=== PATIENT | male | born 1960 | race Caucasian/White ===

== ENCOUNTER 2019-06-09 08:21 | Emergency (ER) | payer MEDICARE, MEDICAID ==
--- NOTE | 2019-06-09 08:33 | ED ---
Complex/Multi-Sys Presentation - HPI Summary HPI Summary: 58-year-old male presents to the emergency department today via EMS because "he did not go to his mental health appointment". Patient did not feel comfortable getting on the public bus although he wanted to attend his mental health appointment. When the patient refused to get on the bus police ordered him to come to the hospital for mental health evaluation via EMS. Today in the emergency department the patient has no complaints including physical pain. He denies suicidal, homicidal thoughts. He denies desire to hurt himself and he does not believe he will go home and hurt himself or commit suicide. He denies recreational drug use, tobacco use but endorses occasional alcohol use. He denies fever, chest pain, abdominal pain, pain with urination, shortness of breath, changes in vision, headache. - History Of Current Complaint Chief Complaint: EDPsychosocial Time Seen by Provider: 06/09/19 08:23 Hx Obtained From: Patient - Allergies/Home Medications Allergies/Adverse Reactions: Allergies Allergy/AdvReac Type Severity Reaction Status Date / Time No Known Allergies Allergy Verified 06/09/19 08:32 Home Medications: Home Medications Acetaminophen TAB* [Tylenol TAB*] 325 mg PO Q4H PRN 06/09/19 [History Confirmed 06/09/19] Al Hydrox/Mg Hydrox/Simet LIQ* [Maalox Plus*] 30 ml PO Q6H PRN 06/09/19 [ History Confirmed 06/09/19] Aspirin EC TAB* [Ecotrin EC Low Dose 81 MG*] 81 mg PO DAILY 06/09/19 [History Confirmed 06/09/19] CloZAPine TAB* 100 mg PO QAM 06/09/19 [History Confirmed 06/09/19] CloZAPine TAB* 200 mg PO BEDTIME 06/09/19 [History Confirmed 06/09/19] Empagliflozin/Metformin HCl [Synjardy Xr 12.5-1,000 mg Tab] 1 each PO BID [History Confirmed 06/09/19] Escitalopram * [Lexapro 10 mg (NF)] 10 mg PO BEDTIME 06/09/19 [History Confirmed 06/09/19] Famotidine TAB* [Pepcid 20 MG TAB*] 20 mg PO BID 06/09/19 [History Confirmed ] Ibuprofen TAB* [Motrin TAB* 600 MG] 600 mg PO Q6H PRN 06/09/19 [History Confirmed 06/09/19] Loperamide CAP* [Imodium CAP*] 2 mg PO Q4H PRN 06/09/19 [History Confirmed 06/09] Magnesium Hydroxide LIQ* [Milk of Magnesia LIQ*] 30 ml PO BEDTIME 06/09/19 [ History Confirmed 06/09/19] Multivitamins/Minerals TAB* [Thera M Plus TAB*] 1 tab PO DAILY 06/09/19 [ History Confirmed 06/09/19] Petrolatum 5 GM* [Vaseline*] 1 applic TOPICAL DAILY 06/09/19 [History Confirmed 06/09/19] Polyethylene Glycol 3350* [Miralax*] 17 gm PO DAILY 06/09/19 [History Confirmed 06/09/19] Ranitidine TAB (NF) [Zantac TAB (NF)] 150 mg PO BID 06/09/19 [History Confirmed 06/09/19] Rosuvastatin Calcium 40 mg PO DAILY 06/09/19 [History Confirmed 06/09/19] SitaGLIPtin (NF) [Januvia (NF)] 100 mg PO DAILY 06/09/19 [History Confirmed ] Triamcinolone 0.1% CREAM (NF) [Kenalog 0.1% Cream (NF)] 1 applic TOPICAL BID [History Confirmed 06/09/19] PMH/Surg Hx/FS Hx/Imm Hx Infectious Disease History: No Infectious Disease History: Denies: Traveled Outside the [place] in Last 30 Days - Social History Alcohol Use: Occasionally Substance Use Type: Reports: None Smoking Status (MU): Heavy Every Day Tobacco Smoker Review of Systems Constitutional: Negative Eyes: Negative ENT: Negative Cardiovascular: Negative Respiratory: Negative Gastrointestinal: Negative Genitourinary: Negative Positive: other Skin: Negative Neurological: Negative Psychological: Normal All Other Systems Reviewed And Are Negative: Yes Physical Exam Triage Information Reviewed: Yes Vital Signs On Initial Exam: Initial Vitals Temp Pulse Resp BP Pulse Ox 97.7 F 92 16 128/78 96 06/09/19 08:28 06/09/19 08:28 06/09/19 08:28 06/09/19 08:28 06/09/19 08:28 Vital Signs Reviewed: Yes Appearance: Positive: Well-Appearing, No Pain Distress, Well-Nourished Skin: Positive: Warm, Skin Color Reflects Adequate Perfusion Eyes: Positive: EOMI, CHANTALE ENT: Positive: Hearing grossly normal Respiratory/Lung Sounds: Positive: Clear to Auscultation, Breath Sounds Present Cardiovascular: Positive: RRR, S1, S2 Abdomen Description: Positive: Nontender, Soft Bowel Sounds: Positive: Present Musculoskeletal: Positive: Strength/ROM Intact Neurological: Positive: Sensory/Motor Intact, Alert, Oriented to Person Place, Time, Normal Gait, Speech Normal. Negative: Slurred Speech Psychiatric: Positive: Normal AVPU Assessment: Alert Procedures - Sedation Patient Received Moderate/Deep Sedation with Procedure: No Diagnostics - Vital Signs Vital Signs Temp Pulse Resp BP Pulse Ox 06/09/19 08:28 97.7 F 92 16 128/78 96 - Laboratory Lab Statement: Any lab studies that have been ordered have been reviewed, and results considered in the medical decision making process. Complex Multi-Symp Course/Dx Course Of Treatment: Patient was evaluated in the emergency department today for psychosocial visit. Patient seen and examined his vital signs are stable and he is afebrile. He had no suicidal or homicidal ideation and he endorsed no thoughts of hurting himself. His caregivers denied that he stated suicidal or homicidal thoughts/actions however they were adamant that he get a psychological evaluation before he goes home. Psychiatric services for consulted for disposition. Psychiatrist, Dr. Garcia, evaluated the patient and believed him to be fit to go home and required no psychiatric services at this time. Patient was discharged home and told to follow-up with his outpatient psychiatrist. He was told to return to the emergency department immediately if he developed any new or worsening symptoms. Patient agreed with this plan. - Diagnoses Differential Diagnoses/HQI/PQRI: Other - Suicidal ideation, acute psychosis. Provider Diagnoses: Anxiety - Physician Notifications Discussed Care Of Patient With: Tito Garcia - psychiatrist believed the patient had no acute psychological disorder requiring admission or hospital stay. He felt he was safe to go home. Discharge ED - Sign-Out/Discharge Documenting (check all that apply): Patient Departure - Discharge Plan Condition: Stable Disposition: HOME Referrals: [facility] [Outside] - 1 Week No Primary Care Phys,NOPCP [Primary Care Provider] - Additional Instructions: You were seen in the emergency department today and missed your appointment. Please follow-up with this physician for rescheduling your appointment. It is noted you do not have a primary care physician in the area so I have given you information on [facility] which you may follow up with for any medical needs. Please return to the emergency department immediately for Any New or Worsening Symptoms Including Suicidal Ideation or Homicidal Ideation. - Billing Disposition and Condition Condition: STABLE Disposition: Home
[2019-06-09 12:44] VITALS: BP 130/66
== END 2019-06-09 12:35 | disposition home or self-care (01) ==
LOC: ED 08:21
DX: F41.9 Anxiety disorder, unspecified (principal); F17.200 Nicotine dependence, unspecified, uncomplicated; Z79.82 Long term (current) use of aspirin; Z79.899 Other long term (current) drug therapy
CPT/HCPCS: 99284

== ENCOUNTER 2019-08-17 10:46 | Emergency (ER) | payer MEDICARE, MEDICAID ==
--- NOTE | 2019-08-17 10:59 | ED ---
Complex/Multi-Sys Presentation - HPI Summary HPI Summary: 59-year-old male presents to the emergency department today sent by his [facility] for mental health evaluation. Patient states he does not need to be here but the prison "made me come". Patient states he currently denies suicidal or homicidal ideation. Patient has no complaints at this time and has no physical pain, fever, shortness of breath, chest pain, abdominal pain, pain with urination, rash. Patient denies use of recreational drugs or alcohol. - History Of Current Complaint Time Seen by Provider: 08/17/19 10:51 Hx Obtained From: Patient - Allergies/Home Medications Allergies/Adverse Reactions: Allergies Allergy/AdvReac Type Severity Reaction Status Date / Time No Known Allergies Allergy Verified 08/17/19 10:59 PMH/Surg Hx/FS Hx/Imm Hx Psychiatric History: Denies: Hx Eating Disorder, Hx of Violent Episodes Against Others - Social History Alcohol Use: Occasionally Substance Use Type: Reports: None Smoking Status (MU): Heavy Every Day Tobacco Smoker Review of Systems Constitutional: Negative Eyes: Negative ENT: Negative Cardiovascular: Negative Respiratory: Negative Gastrointestinal: Negative Genitourinary: Negative Musculoskeletal: Negative Skin: Negative Neurological: Negative Psychological: Normal All Other Systems Reviewed And Are Negative: Yes Physical Exam Triage Information Reviewed: Yes Vital Signs Reviewed: Yes Appearance: Positive: Well-Appearing, No Pain Distress, Well-Nourished Skin: Positive: Warm, Skin Color Reflects Adequate Perfusion Eyes: Positive: EOMI, CHANTALE ENT: Positive: Hearing grossly normal Respiratory/Lung Sounds: Positive: Clear to Auscultation, Breath Sounds Present Cardiovascular: Positive: RRR, S1, S2 Abdomen Description: Positive: Nontender, Soft Bowel Sounds: Positive: Present Musculoskeletal: Positive: Strength/ROM Intact Neurological: Positive: Sensory/Motor Intact, Alert, Oriented to Person Place, Time, Normal Gait, Facial Symmetry, Speech Normal Psychiatric: Positive: Normal, Affect/Mood Appropriate AVPU Assessment: Alert Procedures - Sedation Patient Received Moderate/Deep Sedation with Procedure: No Complex Multi-Symp Course/Dx Course Of Treatment: Patient was evaluated in the emergency department today after being sent here by prison [employer] and former for mental health evaluation. Patient was seen and examined. Vital stable. Patient had no medical complaints nor any psychiatric complaints such as suicidal ideation, homicidal ideation, anxiety, depression. Patient expressed that he did not feel he needed any sort of evaluation and requested to go home. Patient was discharged with outpatient follow-up with his counselor. - Diagnoses Differential Diagnoses/HQI/PQRI: Other - Well visit Provider Diagnoses: Visit for well man health check Discharge ED - Sign-Out/Discharge Documenting (check all that apply): Patient Departure - Discharge Plan Condition: Stable Disposition: HOME Patient Education Materials: Depression (ED) Referrals: [facility] [Outside] - 3 Days No Primary Care Phys,NOPCP [Primary Care Provider] - Additional Instructions: You were seen in the emergency department today for mental health evaluation. You stated you did not feel suicidal or homicidal and did not require evaluation at this time. If you have mental health concerns please follow-up with your counselor or psychiatrist as soon as possible. Please return to the emergency department immediately if you develop any new or worsening symptoms such as suicidal ideation or homicidal ideation. - Billing Disposition and Condition Condition: STABLE Disposition: Home - Attestation Statements Provider Attestation: I was available for consultation for this patient. I did not evaluate the patient, or participate in any medical decision making or disposition decisions unless I am specifically named in the chart as having consulted on the patient. If I have consulted on the patient, please see my own ED note on the patient encounter. Link Samayoa MD
[2019-08-17 12:20] VITALS: BP 118/73
== END 2019-08-17 12:15 | disposition home or self-care (01) ==
LOC: ED 10:46
DX: Z00.00 Encounter for general adult medical examination without abnormal findings (principal); F17.200 Nicotine dependence, unspecified, uncomplicated
CPT/HCPCS: 99282

== ENCOUNTER 2019-09-26 18:57 | Inpatient (IN) | payer MEDICARE, MEDICAID ==
--- NOTE | 2019-09-26 19:17 | ED ---
Medical Screening - HPI Summary HPI Summary: Per caregiver patient with history of schizophrenia complains of change in behaviors since May, including screaming, running around naked. Caregiver states symptoms are getting worse. Patient lives at caregiver's house, and caregiver states she cannot take care of him in this state. Patient calm and appropriate, denies any symptoms, pain or injury. Patient admits to behaviors, but unable to explain why. Denies alcohol or recreational drug use. Per caregiver patient is compliant with medication. - History of Current Complaint Chief Complaint: EDMentalHealth Stated Complaint: MHE PER PT Time Seen by Provider: 09/26/19 19:15 Onset/Duration: Started Weeks Ago Severity: moderate PMH/Surg Hx/FS Hx/Imm Hx Endocrine/Hematology History: Denies: Hx Anticoagulant Therapy Cardiovascular History: Denies: Hx Pacemaker/ICD History: Denies: Hx Dialysis Sensory History: Denies: Hx Eye Prosthesis Opthamlomology History: Denies: Hx Legally Blind EENT History: Denies: Hx Deafness Psychiatric History: Denies: Hx Eating Disorder, Hx of Violent Episodes Against Others Infectious Disease History: No Infectious Disease History: Denies: Traveled Outside the [place] in Last 30 Days - Family History Known Family History: Positive: Non-Contributory - Social History Alcohol Use: Occasionally Substance Use Type: Reports: None Smoking Status (MU): Heavy Every Day Tobacco Smoker Review of Systems Constitutional: Negative Eyes: Negative ENT: Negative Cardiovascular: Negative Respiratory: Negative Gastrointestinal: Negative Genitourinary: Negative Positive: hematuria Skin: Negative Neurological/Mental Status: Negative Psychological: Other All Other Systems Reviewed And Are Negative: Yes Physical Exam - Summary Physical Exam Summary: Patient calm and appropriate. No indication of unusual behavior. Triage Information Reviewed: Yes Vital Signs On Initial Exam: Initial Vitals Temp Pulse Resp BP Pulse Ox 98.7 F 101 16 134/105 97 09/26/19 19:01 09/26/19 19:01 09/26/19 19:01 09/26/19 19:01 09/26/19 19:01 Vital Signs Reviewed: Yes Appearance: Positive: Well-Appearing Skin: Positive: Warm Head/Face: Positive: Normal Head/Face Inspection Eyes: Positive: Normal Neck: Positive: Supple Respiratory/Lung Sounds: Positive: Clear to Auscultation Cardiovascular: Positive: Normal Abdomen Description: Positive: Nontender Musculoskeletal: Positive: Normal Neurological: Positive: Normal Psychiatric: Positive: Normal AVPU Assessment: Alert - [place] Coma Scale Best Eye Response: 4 - Spontaneous Best Motor Response: 6 - Obeys Commands Best Verbal Response: 5 - Oriented Coma Scale Total: 15 Procedures - Sedation Patient Received Moderate/Deep Sedation with Procedure: No Diagnostics - Vital Signs Vital Signs Temp Pulse Resp BP Pulse Ox 09/26/19 19:01 98.7 F 101 16 134/105 97 - Laboratory Result Diagrams: 09/26/19 19:30 09/26/19 19:30 Lab Statement: Any lab studies that have been ordered have been reviewed, and results considered in the medical decision making process. Course/Dx - Course Course Of Treatment: Per caregiver patient with history of schizophrenia complains of change in behaviors since May, including screaming, running around naked. Caregiver states symptoms are getting worse. Patient lives at caregiver's house, and caregiver states she cannot take care of him in this state. Patient calm and appropriate, denies any symptoms, pain or injury. Patient admits to behaviors, but unable to explain why. Denies alcohol or recreational drug use. Per caregiver patient is compliant with medication. Vital signs within normal limits. Labs unremarkable. Mental health evaluation recommends involuntary admission. - Diagnoses Provider Diagnoses: Schizophrenia Discharge ED - Sign-Out/Discharge Documenting (check all that apply): Patient Departure - Discharge Plan Condition: Fair Disposition: PSYCHIATRIC FACILITY-[facility] Referrals: No Primary Care Phys,NOPCP [Primary Care Provider] - - Billing Disposition and Condition Condition: FAIR Disposition: Psychiatric Facility [facility]
[2019-09-26 19:40] LABS: ABS Lymphocytes 1.1 10^3/ul (1.0-4.8); ABS Monocytes 0.8 10^3/ul (0-0.8); ABS Neutrophils 8.2 10^3/ul (1.5-7.7); Eosinophil % 0.1 %; Hematocrit 39 % (42-52); Hemoglobin 13.3 g/dL (14.0-18.0); Lymphocyte % 11.2 %; Mean Corpuscular HGB Conc 34 g/dL (31-36); Mean Corpuscular Hemoglobin 33 pg (27-31); Mean Corpuscular Volume 95 fL (80-94); Mean Platelet Volume 7.1 fL (7.4-10.4); Platelet Count 222 10^3/uL (150-450); Red Blood Count 4.07 10^6 /uL (4.18-5.48); Red Cell Distribution Width 14 % (10-15); White Blood Count 10.2 10^3/uL (3.5-10.8)
[2019-09-26 19:59] LABS: ALT 19 U/L (7-52); AST 17 U/L (13-39); Albumin 4.4 g/dL (3.2-5.2); Albumin/Globulin Ratio 1.8 (1-3); Alkaline Phosphatase 83 U/L (34-104); Anion Gap 10 mmol/L (2-11); BUN/Creatinine Ratio 16.7 (8-20); Blood Urea Nitrogen 16 mg/dL (6-24); CO2 Carbon Dioxide 25 mmol/L (22-32); Calcium 9.6 mg/dL (8.6-10.3); Chloride 105 mmol/L (101-111); EGFR African American 96.7 (>60); EGFR Non-African American 79.9 (>60); Globulin 2.4 g/dL (2-4); Glucose 130 mg/dL (70-100); Sodium 140 mmol/L (135-145); Total Protein 6.8 g/dL (6.4-8.9)
[2019-09-26 20:00] LABS: Acetaminophen < 15 mcg/mL; Alcohol < 10 mg/dL (<10); Salicylate < 2.50 mg/dL (<30)
[2019-09-26 20:14] LABS: TSH (Thyroid Stimulating Horm) 3.29 mcIU/mL (0.34-5.60)
[2019-09-26 22:03] LABS: Urine Appearance Clear; Urine Bilirubin Negative (Negative); Urine Blood 1+ (Negative); Urine Color Yellow; Urine Glucose 3+(>=500 mg/dL) (Negative); Urine Ketones Trace (Negative); Urine Nitrite Negative (Negative); Urine Protein Negative (Negative); Urine Specific Gravity 1.022 (1.010-1.030); Urine Urobilinogen Negative (Negative)
[2019-09-26 22:07] LABS: Urine Bacteria Absent (Absent); Urine Red Blood Cell Trace(0-2/hpf) (Absent); Urine White Blood Cell Trace(0-5/hpf) (Absent)
[2019-09-26 22:49] LABS: Urine Benzodiazepine Screen None Detected (None Detect); Urine Opiates Screen None Detected (None Detect)
[2019-09-27] MEDS ORDERED: Acetaminophen TAB* 325 MG PO PRN (00:06)
[2019-09-27] MEDS ORDERED: Al Hydrox/Mg Hydrox/Simet LIQ* 30 ML UDC PO PRN (00:06)
[2019-09-27] MEDS ORDERED: Loperamide CAP* 2 MG PO PRN (00:07)
[2019-09-27] MEDS ORDERED: Ibuprofen TAB* 600 MG PO PRN (00:09)
[2019-09-27] MEDS: CloZAPine TAB* 100 MG TAB PO SCH ×3 (00:35→21:28)
[2019-09-27] MEDS: Escitalopram * 10 MG TAB PO SCH ×3 (00:35→21:29)
[2019-09-27] MEDS: Famotidine TAB* 20 MG PO SCH ×4 (00:35→21:29)
[2019-09-27] MEDS: Magnesium Hydroxide LIQ* 30 ML UDC PO SCH ×2 (00:35→21:28)
[2019-09-27] MEDS: Nicotine* 2MG (FRUIT FLAVOR) GUM PO PRN ×2 (01:00→05:35)
[2019-09-27] MEDS: Aspirin EC TAB* 81 MG TAB.EC PO SCH (10:05)
[2019-09-27] MEDS: CMCS: Rosuvastatin (NF) 20 MG TAB PO SCH (10:07)
[2019-09-27] MEDS: Polyethylene Glycol 3350* 17 GM PACKET PO SCH ×2 (10:10→17:03)
[2019-09-27] MEDS: Vitamin THERAPEUTIC TAB PO SCH (10:11)
[2019-09-27] MEDS: Triamcinolone 0.025% OINT * 15 GM TUBE TOPICAL SCH ×2 (10:11→21:45)
[2019-09-27] MEDS ORDERED: risperiDONE-M * 1 MG TAB.ORADIS PO PRN (13:48)
[2019-09-27] MEDS: EMPAGLIFLOZIN PO SCH ×2 (14:56→21:44)
[2019-09-27] MEDS: CMC: SitaGLIPtin (NF) 100 MG TAB PO SCH (14:56)
[2019-09-27] MEDS: METFORMIN PO SCH ×2 (14:56→21:44)
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
[2019-09-28] MEDS: Aspirin EC TAB* 81 MG TAB.EC PO SCH (08:17)
[2019-09-28] MEDS: Famotidine TAB* 20 MG PO SCH ×2 (08:17→22:09)
[2019-09-28] MEDS: Vitamin THERAPEUTIC TAB PO SCH (08:17)
[2019-09-28] MEDS: CloZAPine TAB* 100 MG TAB PO SCH ×2 (08:17→22:08)
[2019-09-28] MEDS: CMC: SitaGLIPtin (NF) 100 MG TAB PO SCH (08:17)
[2019-09-28] MEDS: CMCS: Rosuvastatin (NF) 20 MG TAB PO SCH (08:17)
[2019-09-28] MEDS: Polyethylene Glycol 3350* 17 GM PACKET PO SCH (08:20)
[2019-09-28] MEDS: EMPAGLIFLOZIN PO SCH ×2 (08:20→22:09)
[2019-09-28] MEDS: METFORMIN PO SCH ×2 (08:20→22:09)
[2019-09-28] MEDS: Triamcinolone 0.025% OINT * 15 GM TUBE TOPICAL SCH ×2 (08:20→22:09)
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
[2019-09-28] MEDS ORDERED: Docusate CAP* 100 MG PO PRN (10:03)
[2019-09-28] MEDS ORDERED: Nicotine Lozenge* mini 4 MG LOZNG.MINI MT PRN (15:26)
[2019-09-28] MEDS ORDERED: metFORMIN* 500 MG TAB PO ONE (21:00)
[2019-09-28] MEDS: Escitalopram * 10 MG TAB PO SCH (22:09)
[2019-09-28] MEDS: Magnesium Hydroxide LIQ* 30 ML UDC PO SCH (22:10)
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
[2019-09-29] MEDS ORDERED: Docusate CAP* 100 MG PO ONE (10:06)
[2019-09-29] MEDS: CMC: SitaGLIPtin (NF) 100 MG TAB PO SCH (10:23)
[2019-09-29] MEDS: Famotidine TAB* 20 MG PO SCH ×2 (10:24→22:13)
[2019-09-29] MEDS: Aspirin EC TAB* 81 MG TAB.EC PO SCH (10:24)
[2019-09-29] MEDS: CloZAPine TAB* 100 MG TAB PO SCH ×2 (10:25→22:13)
[2019-09-29] MEDS: CMCS: Rosuvastatin (NF) 20 MG TAB PO SCH (10:26)
[2019-09-29] MEDS: EMPAGLIFLOZIN PO SCH ×2 (10:26→22:13)
[2019-09-29] MEDS: Polyethylene Glycol 3350* 17 GM PACKET PO SCH (10:26)
[2019-09-29] MEDS: METFORMIN PO SCH ×2 (10:26→22:13)
[2019-09-29] MEDS: Vitamin THERAPEUTIC TAB PO SCH (10:27)
[2019-09-29] MEDS: Triamcinolone 0.025% OINT * 15 GM TUBE TOPICAL SCH ×2 (10:27→22:30)
[2019-09-29] MEDS ORDERED: Magnesium CITRATE* 300 ML BTL PO ONE (10:39)
[2019-09-29] MEDS ORDERED: Sodium Phosphate ADULT ENEMA* 118 ml bottle PR ONE (14:50)
[2019-09-29] MEDS ORDERED: Escitalopram * 20 MG TABLET PO SCH (21:00)
[2019-09-29] MEDS ORDERED: metFORMIN* 1,000 MG TAB PO ONE (21:30)
[2019-09-29] MEDS: Escitalopram * 10 MG TAB PO SCH (22:13)
[2019-09-29] MEDS: Magnesium Hydroxide LIQ* 30 ML UDC PO SCH (22:13)
[2019-09-30] MEDS: Vitamin THERAPEUTIC TAB PO SCH (10:36)
[2019-09-30] MEDS: CMCS: Rosuvastatin (NF) 20 MG TAB PO SCH (10:36)
[2019-09-30] MEDS: Aspirin EC TAB* 81 MG TAB.EC PO SCH (10:36)
[2019-09-30] MEDS: CloZAPine TAB* 100 MG TAB PO SCH ×2 (10:36→21:28)
[2019-09-30] MEDS: CMC: SitaGLIPtin (NF) 100 MG TAB PO SCH (10:37)
[2019-09-30] MEDS: METFORMIN PO SCH (10:38)
[2019-09-30] MEDS: Pantoprazole TAB * 40 MG TAB PO SCH (10:38)
[2019-09-30] MEDS: EMPAGLIFLOZIN PO SCH (10:38)
[2019-09-30] MEDS: Triamcinolone 0.025% OINT * 15 GM TUBE TOPICAL SCH ×2 (10:39→21:36)
[2019-09-30] MEDS: Polyethylene Glycol 3350* 17 GM PACKET PO SCH (10:39)
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
[2019-09-30] MEDS: metFORMIN* 1,000 MG TAB PO SCH (17:50)
[2019-09-30] MEDS: Nicotine* 2MG (FRUIT FLAVOR) GUM PO PRN (18:41)
[2019-09-30] MEDS: Magnesium Hydroxide LIQ* 30 ML UDC PO SCH (21:28)
[2019-09-30] MEDS: Escitalopram * 10 MG TAB PO SCH (21:28)
[2019-10-01] MEDS: CloZAPine TAB* 100 MG TAB PO SCH ×2 (10:06→21:16)
[2019-10-01] MEDS: metFORMIN* 1,000 MG TAB PO SCH ×2 (10:06→17:09)
[2019-10-01] MEDS: CloZAPine TAB* 25 MG TAB PO SCH (10:06)
[2019-10-01] MEDS: Pantoprazole TAB * 40 MG TAB PO SCH (10:06)
[2019-10-01] MEDS: Aspirin EC TAB* 81 MG TAB.EC PO SCH (10:06)
[2019-10-01] MEDS: CMC: SitaGLIPtin (NF) 100 MG TAB PO SCH (10:07)
[2019-10-01] MEDS: Triamcinolone 0.025% OINT * 15 GM TUBE TOPICAL SCH ×2 (10:07→22:16)
[2019-10-01] MEDS: CMCS: Rosuvastatin (NF) 20 MG TAB PO SCH (10:07)
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
[2019-10-01] MEDS: Vitamin THERAPEUTIC TAB PO SCH (10:37)
[2019-10-01] MEDS: Polyethylene Glycol 3350* 17 GM PACKET PO SCH (10:38)
[2019-10-01] MEDS: Escitalopram * 10 MG TAB PO SCH (21:16)
[2019-10-01] MEDS: Magnesium Hydroxide LIQ* 30 ML UDC PO SCH (21:17)
[2019-10-02 03:41] LABS: Clozapine 335 ng/mL (>350); Clozapine & Norclozapine Level 493 ng/mL (>450); Norclozapine 158 ng/mL
[2019-10-02] MEDS: CloZAPine TAB* 25 MG TAB PO SCH (09:40)
[2019-10-02] MEDS: metFORMIN* 1,000 MG TAB PO SCH ×2 (09:40→17:33)
[2019-10-02] MEDS: Triamcinolone 0.025% OINT * 15 GM TUBE TOPICAL SCH ×2 (09:40→21:51)
[2019-10-02] MEDS: CloZAPine TAB* 100 MG TAB PO SCH ×2 (09:40→21:50)
[2019-10-02] MEDS: Aspirin EC TAB* 81 MG TAB.EC PO SCH (09:40)
[2019-10-02] MEDS: CMC: SitaGLIPtin (NF) 100 MG TAB PO SCH (09:40)
[2019-10-02] MEDS: Vitamin THERAPEUTIC TAB PO SCH (09:40)
[2019-10-02] MEDS: CMCS: Rosuvastatin (NF) 20 MG TAB PO SCH (09:40)
[2019-10-02] MEDS: Polyethylene Glycol 3350* 17 GM PACKET PO SCH (09:40)
[2019-10-02] MEDS: Pantoprazole TAB * 40 MG TAB PO SCH (09:40)
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
[2019-10-02] MEDS: Escitalopram * 10 MG TAB PO SCH (21:50)
[2019-10-02] MEDS: Magnesium Hydroxide LIQ* 30 ML UDC PO SCH (21:50)
[2019-10-03] MEDS: metFORMIN* 1,000 MG TAB PO SCH ×2 (10:02→16:14)
[2019-10-03] MEDS: CMCS: Rosuvastatin (NF) 20 MG TAB PO SCH (10:02)
[2019-10-03] MEDS: CMC: SitaGLIPtin (NF) 100 MG TAB PO SCH (10:03)
[2019-10-03] MEDS: CloZAPine TAB* 25 MG TAB PO SCH (10:03)
[2019-10-03] MEDS: CloZAPine TAB* 100 MG TAB PO SCH ×2 (10:04→20:03)
[2019-10-03] MEDS: Pantoprazole TAB * 40 MG TAB PO SCH (10:04)
[2019-10-03] MEDS: Aspirin EC TAB* 81 MG TAB.EC PO SCH (10:04)
[2019-10-03] MEDS: Vitamin THERAPEUTIC TAB PO SCH (10:04)
[2019-10-03] MEDS: Polyethylene Glycol 3350* 17 GM PACKET PO SCH (10:05)
[2019-10-03] MEDS: Triamcinolone 0.025% OINT * 15 GM TUBE TOPICAL SCH ×2 (10:18→20:10)
[2019-10-03] MEDS: Escitalopram * 10 MG TAB PO SCH (20:03)
[2019-10-03] MEDS: Magnesium Hydroxide LIQ* 30 ML UDC PO SCH (20:03)
[2019-10-04] MEDS: CMCS: Rosuvastatin (NF) 20 MG TAB PO SCH (10:08)
[2019-10-04] MEDS: Pantoprazole TAB * 40 MG TAB PO SCH (10:09)
[2019-10-04] MEDS: Vitamin THERAPEUTIC TAB PO SCH (10:10)
[2019-10-04] MEDS: CloZAPine TAB* 100 MG TAB PO SCH ×2 (10:10→20:49)
[2019-10-04] MEDS: metFORMIN* 1,000 MG TAB PO SCH ×2 (10:10→17:59)
[2019-10-04] MEDS: Aspirin EC TAB* 81 MG TAB.EC PO SCH (10:11)
[2019-10-04] MEDS: CloZAPine TAB* 25 MG TAB PO SCH (10:11)
[2019-10-04] MEDS: CMC: SitaGLIPtin (NF) 100 MG TAB PO SCH (10:12)
[2019-10-04] MEDS: Polyethylene Glycol 3350* 17 GM PACKET PO SCH (10:29)
[2019-10-04] MEDS: Triamcinolone 0.025% OINT * 15 GM TUBE TOPICAL SCH ×2 (10:29→20:49)
[2019-10-04] MEDS: Escitalopram * 10 MG TAB PO SCH (20:49)
[2019-10-04] MEDS: Magnesium Hydroxide LIQ* 30 ML UDC PO SCH (20:49)
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
[2019-10-05 09:11] VITALS: BP 106/72
[2019-10-05] MEDS: CMCS: Rosuvastatin (NF) 20 MG TAB PO SCH (09:59)
[2019-10-05] MEDS: CMC: SitaGLIPtin (NF) 100 MG TAB PO SCH (10:00)
[2019-10-05] MEDS: Aspirin EC TAB* 81 MG TAB.EC PO SCH (10:00)
[2019-10-05] MEDS: metFORMIN* 1,000 MG TAB PO SCH (10:00)
[2019-10-05] MEDS: Pantoprazole TAB * 40 MG TAB PO SCH (10:00)
[2019-10-05] MEDS: CloZAPine TAB* 25 MG TAB PO SCH (10:00)
[2019-10-05] MEDS: CloZAPine TAB* 100 MG TAB PO SCH (10:01)
[2019-10-05] MEDS: Vitamin THERAPEUTIC TAB PO SCH (10:01)
[2019-10-05] MEDS: Triamcinolone 0.025% OINT * 15 GM TUBE TOPICAL SCH (10:01)
[2019-10-05] MEDS: Polyethylene Glycol 3350* 17 GM PACKET PO SCH (10:02)
== END 2019-10-05 16:00 | disposition home or self-care (01) | DRG 885 ==
LOC: ED 18:57 → BSU 09-27 00:32
PROVIDERS: ADMIT Psychiatry & Neurology Psychiatry; ATTEND Psychiatry & Neurology Psychiatry
DX: F20.9 Schizophrenia, unspecified (principal); F79 Unspecified intellectual disabilities; F17.210 Nicotine dependence, cigarettes, uncomplicated; I10 Essential (primary) hypertension; E11.9 Type 2 diabetes mellitus without complications; E78.00 Pure hypercholesterolemia, unspecified; Z88.8 Allergy status to other drugs, medicaments and biological substances; Z79.899 Other long term (current) drug therapy; Z79.82 Long term (current) use of aspirin
CPT/HCPCS: 36415; 74019; 80053; 80159; 80307; 80320; 80329; 81003; 81015; 84443; 85025; 87086; 93005; 99222; 99233; 99238; 99284; A9270-GY; G0480

== ENCOUNTER 2019-10-22 13:40 | Emergency (ER) | payer MEDICARE, MEDICAID ==
--- NOTE | 2019-10-22 14:00 | ED ---
Psychiatric Complaint - HPI Summary HPI Summary: 59 year old M presenting to [facility] accompanied by the police with a chief complaint of screaming all night and slamming his head into the wall, per the staff at his longterm. The patient has reportedly had increasing aggressiveness. He has a history of schizophrenia and was on the inpatient mental health unit. The patient lives a personal residence longterm. The patient reports he feels fine, has no complaints at would like to go home. He states at times he hears a "megaphone" and this makes him upset- but currently no complaints. The patient rates the pain 0/10 in severity. Patient denies any pain, cough, vomiting, diarrhea, abdominal pain, or suicidal or homicidal ideation. He has a history of schizophrenia. Patient's medication as entered in EMR by md urologist reviewed this visit. Allergy list reviewed. - History Of Current Complaint Chief Complaint: EDPsychosocial Time Seen by Provider: 10/22/19 13:49 Hx Obtained From: Patient Onset/Duration: Lasting Hours Timing: Constant Has Suicidal: Denies: Thoughts Has Homicidal: Denies: Thoughts - Allergies/Home Medications Allergies/Adverse Reactions: Allergies Allergy/AdvReac Type Severity Reaction Status Date / Time atorvastatin [From Lipitor] Allergy Unknown Verified 09/26/19 19:06 Reaction Details niacin Allergy Shakes Verified 09/26/19 19:06 Home Medications: Home Medications Acetaminophen TAB* [Tylenol TAB*] 325 mg PO Q4H PRN 06/09/19 [History Confirmed 10/22/19] Al Hydrox/Mg Hydrox/Simet LIQ* [Maalox Plus*] 30 ml PO Q6H PRN 06/09/19 [ History Confirmed 10/22/19] Loperamide CAP* [Imodium CAP*] 2 mg PO Q4H PRN 06/09/19 [History Confirmed 10/21] Multivitamins/Minerals TAB* [Thera M Plus TAB*] 1 tab PO DAILY 06/09/19 [ History Confirmed 10/22/19] Petrolatum 5 GM* [Vaseline*] 1 applic TOPICAL DAILY 06/09/19 [History Confirmed 10/22/19] Aspirin EC TAB* [Ecotrin EC Low Dose 81 MG*] 81 mg PO DAILY tab.ec 10/05/19 [ Rx Confirmed 10/22/19] CloZAPine TAB* 100 mg PO DAILY tab 10/05/19 [Rx Confirmed 10/22/19] CloZAPine TAB* 200 mg PO BEDTIME tab 10/05/19 [Rx Confirmed 10/22/19] Escitalopram * [Lexapro 10 mg (NF)] 10 mg PO BEDTIME tab 10/05/19 [Rx Confirmed 10/22/19] Ibuprofen TAB* [Motrin TAB* 600 MG] 600 mg PO Q6H PRN tab 10/05/19 [Rx Confirmed 10/22/19] Magnesium Hydroxide LIQ* [Milk of Magnesia LIQ*] 30 ml PO BEDTIME udc 10/05/19 [Rx Confirmed 10/22/19] Polyethylene Glycol 3350* [Miralax (17 GM DOSE HELENA)] 17 gm PO DAILY packet [Rx Confirmed 10/22/19] Rosuvastatin (NF) [Crestor (NF)] 40 mg PO DAILY tab 10/05/19 [Rx Confirmed 04/03] SitaGLIPtin (NF) [Januvia (NF)] 100 mg PO DAILY tab 10/05/19 [Rx Confirmed 04/03] Triamcinolone 0.025% OINT * 1 applic TOPICAL BID oint 10/05/19 [Rx Confirmed ] metFORMIN* [Glucophage 1000 MG TAB *] 1,000 mg PO 0800,1700 tab 10/05/19 [Rx Confirmed 10/22/19] Empagliflozin/Metformin HCl [Synjardy 12.5-1000 mg] 1 tab PO BID 10/22/19 [ History Confirmed 10/22/19] Omeprazole CAP (NF) [Prilosec CAP* 20 MG] 20 mg PO DAILY 10/22/19 [History Confirmed 10/22/19] PMH/Surg Hx/FS Hx/Imm Hx Previously Healthy: No Endocrine/Hematology History: Denies: Hx Anticoagulant Therapy Cardiovascular History: Denies: Hx Pacemaker/ICD History: Denies: Hx Dialysis Sensory History: Denies: Hx Contacts or Glasses, Hx Eye Prosthesis, Hx Legally Blind, Hx Deafness, Hx Hearing Aid Opthamlomology History: Denies: Hx Contacts or Glasses, Hx Eye Prosthesis, Hx Legally Blind Psychiatric History: Reports: Hx Schizophrenia Denies: Hx Eating Disorder, Hx of Violent Episodes Against Others - Surgical History Surgical History: None Infectious Disease History: No Infectious Disease History: Denies: Traveled Outside the [place] in Last 30 Days - Family History Known Family History: Positive: Non-Contributory - Social History Occupation: Disabled Lives: Long Term Alcohol Use: Occasionally Alcohol Amount: not much Substance Use Type: Reports: None Smoking Status (MU): Heavy Every Day Tobacco Smoker Review of Systems Constitutional: Other - Aggressive Negative: Cough Negative: Vomiting Psychological: Other - No suicidal ideation, no homicidal ideation All Other Systems Reviewed And Are Negative: Yes Physical Exam - Summary Physical Exam Summary: Vital Signs Reviewed: Yes A+Ox3, no distress pt cooperative, slightly anxious Eyes: Conjunctiva Clear, ENT: Hearing grossly normal, mmmoist Neck: Positive: Supple Respiratory: Positive: No respiratory distress, No accessory muscle use + CTA throughout no w/r Cardiovascular: RRR nl s1, s2 no m/r CBT <2 sec abd soft + BS nt/nd no guarding, no distension Musculoskeletal Exam: JOHNSON x 4 without difficulty, ambulatory without difficulty Neurological: Positive: Alert, appropriate Psychological: Positive: Normal Response To manager utilization, slightly anxious Skin: Positive: no rash, no ecchymosis Triage Information Reviewed: Yes Vital Signs On Initial Exam: Initial Vitals Temp Pulse Resp BP Pulse Ox 98.3 F 95 16 143/72 98 10/22/19 13:42 10/22/19 13:42 10/22/19 13:42 10/22/19 13:42 10/22/19 13:42 Vital Signs Reviewed: Yes Procedures - Sedation Patient Received Moderate/Deep Sedation with Procedure: No Diagnostics - Vital Signs Vital Signs Temp Pulse Resp BP Pulse Ox 10/22/19 13:42 98.3 F 95 16 143/72 98 - Laboratory Result Diagrams: 10/22/19 14:25 10/22/19 14:25 Lab Statement: Any lab studies that have been ordered have been reviewed, and results considered in the medical decision making process. Re-Evaluation - Re-Evaluation First Eval Comment: Pt labs reviewed and unremarkable. Pt had MHE. Would like to discharge pt home. Home refusing to accept pt back - will ask social work to see patient Second Eval Comment: Senior Resident Care Director called to ED - states will need to admit for cusotidal care and will work on placement tomorrow. I did speak with Dr. Zambrano -agree to eval pt Course/Dx - Course Course Of Treatment: Patient is a 59 abdominal with a history of non-insulin- dependent diabetes mellitus lives in a longterm setting for underlying diagnosis schizophrenia. Patient was inpatient mental health approximately one month ago. Last night patient was reportedly yelling and hitting his head on the wall. Caregiver became anxious and concerned and called the police to bring him today. Patient without complaints upon my evaluation. Patient states sometimes he hears someone talking to him tubal R and this makes him feel stressed. Patient states he to go home. Patient without any physical complaints. On exam vital signs are stable. Patient appropriate all slightly anxious. I did offer patient nicotine patch which he declined. We'll check labs and request MHE. Patient declined anxiety medication to help him relax - he declined Will continue ot monitor - Differential Dx/Clinical Impression Provider Diagnosis: Behavior disturbance Discharge ED - Sign-Out/Discharge Documenting (check all that apply): Patient Departure - Discharge Plan Condition: Stable Disposition: ADMITTED TO [facility] Referrals: No Primary Care Phys,[facility] [Primary Care Provider] - - Billing Disposition and Condition Condition: STABLE Disposition: Admitted to [facility] - Attestation Statements Document Initiated by Scribe: Yes Documenting Scribe: Licha Michael Provider For Whom Scribe is Documenting (Include Credential): Nathalia Aparicio MD Scribe Attestation: I, Licha Michael, scribed for Nathalia Aparicio MD on 10/22/19 at 1613. Scribe Documentation Reviewed: Yes Provider Attestation: The documentation as recorded by the Licha denny accurately reflects the service I personally performed and the decisions made by me, Nathalia Aparicio MD Status of Scribe Document: Viewed
--- NOTE | 2019-10-22 14:29 | PN ---
ED Psychiatric Progress Note Date of Service: 10/22/19 Subjective: IDENTIFYING DATA: Jah is a 59-year-old mentally disabled male with known history of mental illness, who was brought to the emergency department by police after his care provider became concerned about his behavior at [employer]: " I am fine" Patient looks forward to going back to live at his long term. Patient remarked that Monserrat was worried about him and that is why the police were called and brought him to the emergency room. Per collateral report the patient became upset and banged his head. The patient reported that he has been eating 3 meals a day and has has adequate sleep. The patient reported taking his medications. Patient denied drug use. The patient denied suicidal and or homicidal ideation intent or plan. Patient denied access to firearms. Patient did not make a suicide attempt. Collateral was obtained from caregiver and she is requesting that he be in the hospital because he yells and screams at night. Mental Status Exam APPEARANCE : 59 year old male who appears stated age wearing hat and glasses. Patient appears to have fair hygiene and grooming. Patient is sitting calmly on the bed while nurse is drawing blood sample. BEHAVIOR: Cooperative , calm EYE CONTACT: Fair PSYCHOMOTOR ACTIVITY: No psychomotor agitation or retardation. MOVEMENTS: No abnormal movements observed. SPEECH : Normal rate, rhythm, volume and tone. MOOD : "Fine " AFFECT : Type euthymic Range is restricted Mood Congruent THOUGHT PROCESS: Formulated and organized in a logical, linear goal directed manner. THOUGHT CONTENT: no delusions, obsessions, phobias or preoccupations. PERCEPTION: No current auditory or visual hallucinations. Doesnt appear to be responding to internal cues. No evidence of depersonalization , de-realization, or illusions SUICIDALITY Denied suicidal ideation, intent or plan. HOMICIDALITY Denied homicidal ideation, intent or plan. Insight/judgment: Poor insight and judgment ORIENTATION: Oriented to self, location, and time Diagnosis: Schizophrenia, intellectual disability, tobacco use disorder. Plan # Patient does not meet criteria for inpatient psychiatric admission # This patient was recently discharged from the [facility] and appears at his baseline # Patient to follow up in the outpatient setting # Collateral obtained from long term #Patient was recently treated in Inpatient psychiatric unit and readmission will not be of benefit at this time in amending episodic behavioral outbursts associated with his intellectual disability. Patient does not show overt signs of mental illness. Risk factors: Male, , Age, single, history of a mental health condition, recent psychiatric hospitalization. History of self injurious behavior. Protective factors: Patient did not have suicidal and or homicidal ideation, intent or plan. Patient has not made a prior suicide attempt. Has support system. No history of service. Currently no feelings of hopelessness, not in an occupation of social isolation, no known family history of suicide, doesnt have access to firearms. Doesnt have command hallucinations and or psychotic features at this time. No current substance abuse. No current alcohol abuse. Not an anniversary of a loss of a loved one. The patient is currently future orientated. Patient engaged in treatment and compliant with medication. No barriers to seek mental health treatment. Not incarcerated. The patient did not have a cultural belief that supported suicide. Patient did not experience a loss of someone close that recently by suicide. Current Non- modifiable risk factors include history of mental illness, intellectual disability, age , race , gender, relationship status, recent psychiatric hospitalization, history of self injurious behavior. The patient was advised of the 24 hour / 7 days a week availability of the emergency room and to call 911 in the event of an emergency such as being suicidal and/ or homicidal. Vital Signs Temp Pulse Resp BP Pulse Ox 98.3 F 95 16 143/72 98 10/22/19 13:42 10/22/19 13:42 10/22/19 13:42 10/22/19 13:42 10/22/19 13:42
[2019-10-22 14:36] LABS: ABS Basophils 0.1 10^3/ul (0-0.2); ABS Lymphocytes 1.5 10^3/ul (1.0-4.8); ABS Monocytes 0.5 10^3/ul (0-0.8); ABS Neutrophils 5.6 10^3/ul (1.5-7.7); Eosinophil % 0.2 %; Hematocrit 43 % (42-52); Hemoglobin 14.9 g/dL (14.0-18.0); Lymphocyte % 19.1 %; Mean Corpuscular HGB Conc 34 g/dL (31-36); Mean Corpuscular Hemoglobin 33 pg (27-31); Mean Corpuscular Volume 94 fL (80-94); Mean Platelet Volume 7.3 fL (7.4-10.4); Nucleated Red Blood Cells % 0.1; Platelet Count 238 10^3/uL (150-450); Red Cell Distribution Width 14 % (10-15); White Blood Count 7.7 10^3/uL (3.5-10.8)
[2019-10-22 14:53] LABS: ALT 17 U/L (7-52); AST 16 U/L (13-39); Albumin 4.6 g/dL (3.2-5.2); Albumin/Globulin Ratio 1.7 (1-3); Alkaline Phosphatase 82 U/L (34-104); Anion Gap 12 mmol/L (2-11); Blood Urea Nitrogen 12 mg/dL (6-24); CO2 Carbon Dioxide 23 mmol/L (22-32); Calcium 9.4 mg/dL (8.6-10.3); Chloride 102 mmol/L (101-111); EGFR African American 109.8 (>60); EGFR Non-African American 90.7 (>60); Globulin 2.7 g/dL (2-4); Glucose 101 mg/dL (70-100); Potassium 4.1 mmol/L (3.5-5.0); Sodium 137 mmol/L (135-145); Total Protein 7.3 g/dL (6.4-8.9)
[2019-10-22 14:55] LABS: Alcohol < 10 mg/dL (<10); Salicylate < 2.50 mg/dL (<30)
[2019-10-22 15:06] LABS: Urine Benzodiazepine Screen None Detected (None Detect); Urine Opiates Screen None Detected (None Detect)
[2019-10-22 15:06] LABS: Acetaminophen < 15 mcg/mL
[2019-10-22 15:08] LABS: TSH (Thyroid Stimulating Horm) 2.97 mcIU/mL (0.34-5.60)
[2019-10-22 15:13] LABS: Urine Appearance Clear; Urine Bilirubin Negative (Negative); Urine Blood Negative (Negative); Urine Color Colorless; Urine Glucose Negative (Negative); Urine Ketones Negative (Negative); Urine Nitrite Negative (Negative); Urine Protein Negative (Negative); Urine Specific Gravity 1.001 (1.010-1.030); Urine Urobilinogen Negative (Negative)
[2019-10-22 17:03] VITALS: BP 129/93
== END 2019-10-22 17:02 | disposition home or self-care (01) ==
LOC: ED 13:40
DX: F91.9 Conduct disorder, unspecified (principal); F17.210 Nicotine dependence, cigarettes, uncomplicated; Z79.82 Long term (current) use of aspirin; Z79.899 Other long term (current) drug therapy; Z79.84 Long term (current) use of oral hypoglycemic drugs; Z88.8 Allergy status to other drugs, medicaments and biological substances
CPT/HCPCS: 36415; 80053; 80307; 80320; 80329; 81003; 84443; 85025; 99284; G0480